=== PATIENT | male | born 1935 | race Caucasian/White ===

== ENCOUNTER 2020-08-23 18:29 | Observation (INO) | payer MEDICARE, OTHER ==
[~2020-08-23] VITALS: Ht 177.8 cm; Wt 77.3 kg
[~2020-08-23 18:29] MED LIST: ASPI-611 PO; ATOR40TA72 PO; CEFD300C3 PO; CLOP75TA34 PO; FINA5TAB11 PO; LACT1CAP26 PO; LEVO100T9 PO; LEVO50TA8 PO; OXYB5TAB16 PO; PANT40TA54 PO
--- NOTE | 2020-08-23 18:55 | NUR ---
UROLOGIST CARMITA HAS BEEN NOTIFIED THAT PT IS IN ER - GETTING UROLOGY CART AND WILL PLACE OUTSIDE ROOM FOR
[2020-08-23 19:15] LABS: BASOPHILS % (AUTO) 0.2 % (0-1); EOSINOPHILS # (AUTO) 0.1 X10'3 (0-0.9); EOSINOPHILS % (AUTO) 0.9 % (0-6); HEMATOCRIT 33.2 % (42.0-52.0); HEMOGLOBIN 11.5 g/dl (14.0-17.9); LYMPHOCYTES # (AUTO) 0.6 X10'3 (1.1-4.8); LYMPHOCYTES % (AUTO) 6.1 % (21-51); MEAN CORPUSCULAR HEMOGLOBIN 32.7 PG (27.0-31.0); MEAN CORPUSCULAR HGB CONC 34.7 g/dL (33.0-36.5); MEAN CORPUSCULAR VOLUME 94.3 FL (78-98); MEAN PLATELET VOLUME 8.1 FL (7.4-10.4); MONOCYTES % (AUTO) 9.3 % (2-12); NEUTROPHILS # (AUTO) 8.8 X10'3 (1.8-7.7); NEUTROPHILS % (AUTO) 83.5 % (42-75); PLATELET COUNT 269 X10'3 (140-440); RED BLOOD COUNT 3.52 X10'6 (4.70-6.10); RED CELL DISTRIBUTION WIDTH 14.8 % (11.5-14.5); WHITE BLOOD COUNT 10.6 X10'3 (4.5-11.0)
[2020-08-23 19:28] LABS: PARTIAL THROMBOPLASTIN TIME 30 SECONDS (22-32)
[2020-08-23 19:33] LABS: ALANINE AMINOTRANSFERASE 22 U/L (12-78); ALBUMIN 3.1 G/DL (3.4-5.0); ALBUMIN/GLOBULIN RATIO 1.1 (1.1-1.5); ALKALINE PHOSPHATASE 55 IU/L (46-116); ANION GAP 7 (8-16); ASPARTATE AMINO TRANSFERASE 22 U/L (10-37); BILIRUBIN,TOTAL 0.5 MG/DL (0.1-1.0); BLOOD UREA NITROGEN 10 MG/DL (7-18); BUN/CREATININE RATIO 10.2 (5.4-32.0); CALCIUM 8.1 MG/DL (8.5-10.1); CHLORIDE 102 MMOL/L (99-107); CREATININE 0.98 MG/DL (0.60-1.10); GLUCOSE 101 MG/DL (70-104); POTASSIUM 3.9 MMOL/L (3.5-5.1); SODIUM 136 MMOL/L (135-145); TOTAL CARBON DIOXIDE 27.4 MMOL/L (24-32); TOTAL PROTEIN 5.8 G/DL (6.4-8.2); eGFR 73 ML/MIN
[2020-08-23 19:49] LABS: CLARITY,URINE BLOODY (Clear); COLOR,URINE RED (Yellow); UA COLLECTION TYPE NON-SPECIFIED
[2020-08-23 19:54] LABS: BACTERIA,URINE FEW /HPF (Neg); MUCUS STRANDS NONE SEEN /LPF (Neg); RBC,URINE TNTC /HPF (0-2); SQUAMOUS EPITHELIAL CELL,UR NONE SEEN /LPF (FEW)
[2020-08-23] MEDS ORDERED: mag hydrox/Alum hydrox/simeth 30ml oral suspension PO PRN (20:20)
[2020-08-23] MEDS ORDERED: morphine 2 MG/ML inj. syringe IV PRN ×2 (20:20)
[2020-08-23] MEDS ORDERED: ondansetron/PF 4mg/2ml inj IV PRN (20:20)
[2020-08-23] MEDS ORDERED: magnesium hydroxide 30ml (MOM) UD suspension PO PRN (20:20)
[2020-08-23] MEDS ORDERED: acetaminophen 325mg tablet PO PRN ×2 (20:20)
[2020-08-23] MEDS: opium/belladonna alkaloids No. 15A 30mg rectal suppository RC PRN (20:55)
[2020-08-23] MEDS: normal saline 1000ml 1,000 ML IV SCH (21:16)
--- NOTE | 2020-08-23 21:30 | NUR ---
I have received report from Bigg RN and had the opportunity to ask questions and assume patient care.
[2020-08-23 21:45] VITALS: BP 93/64
[2020-08-23] MEDS ORDERED: oxybutynin 5mg tablet PO PRN (23:55)
[2020-08-24] VITALS: BP 102/63
[2020-08-24] MEDS: opium/belladonna alkaloids No. 15A 30mg rectal suppository RC PRN (04:33)
--- NOTE | 2020-08-24 06:05 | NUR ---
Patient in room [facility]. I have received report from Mary Lou IPMENTEL and had the opportunity to ask questions and assume patient care.
--- NOTE | 2020-08-24 06:22 | NUR ---
Problems reprioritized. Patient report given, questions answered & plan of care reviewed with Brooke PIMENTEL.
[2020-08-24] MEDS ORDERED: levoTHYROXINE 75mcg tablet PO SCH (07:00)
[2020-08-24 07:10] LABS: BASOPHILS % (AUTO) 0.3 % (0-1); EOSINOPHILS # (AUTO) 0.1 X10'3 (0-0.9); EOSINOPHILS % (AUTO) 0.5 % (0-6); HEMATOCRIT 32.1 % (42.0-52.0); HEMOGLOBIN 11.1 g/dl (14.0-17.9); LYMPHOCYTES # (AUTO) 0.3 X10'3 (1.1-4.8); LYMPHOCYTES % (AUTO) 3.1 % (21-51); MEAN CORPUSCULAR HGB CONC 34.7 g/dL (33.0-36.5); MEAN CORPUSCULAR VOLUME 95.1 FL (78-98); MONOCYTES # (AUTO) 0.5 X10'3 (0-0.9); MONOCYTES % (AUTO) 4.6 % (2-12); NEUTROPHILS # (AUTO) 9.7 X10'3 (1.8-7.7); NEUTROPHILS % (AUTO) 91.5 % (42-75); PLATELET COUNT 238 X10'3 (140-440); RED BLOOD COUNT 3.37 X10'6 (4.70-6.10); RED CELL DISTRIBUTION WIDTH 14.7 % (11.5-14.5); WHITE BLOOD COUNT 10.6 X10'3 (4.5-11.0)
[2020-08-24] MEDS ORDERED: pantoprazole 40mg Tablet.DR PO SCH (07:30)
[2020-08-24 07:35] LABS: ALBUMIN 2.8 G/DL (3.4-5.0); ANION GAP 8 (8-16); BLOOD UREA NITROGEN 11 MG/DL (7-18); BUN/CREATININE RATIO 11.8 (5.4-32.0); CHLORIDE 104 MMOL/L (99-107); CREATININE 0.93 MG/DL (0.60-1.10); GLUCOSE 95 MG/DL (70-104); POTASSIUM 4.2 MMOL/L (3.5-5.1); SODIUM 139 MMOL/L (135-145); TOTAL CARBON DIOXIDE 26.7 MMOL/L (24-32); eGFR 77 ML/MIN
[2020-08-24] MEDS: cefpodoxime proxetil 100mg tablet PO SCH ×2 (07:52→18:37)
[2020-08-24] MEDS ORDERED: atorvastatin 20mg tablet PO SCH (08:00)
[2020-08-24] MEDS ORDERED: non-formulary drug (Levothyroxine Sodium 50 MCG) PO SCH (08:00)
[2020-08-24] MEDS ORDERED: finasteride 5mg tablet PO SCH (08:00)
[2020-08-24 10:00] VITALS: BP 97/46
[2020-08-24] MEDS ORDERED: FLU VACC QS2020-21(6MOS UP)/PF 60 MCG/0.5 ML SYRINGE IMVAC ONE (10:00)
[2020-08-24 12:00] VITALS: BP 93/56
[2020-08-24] MEDS ORDERED: FLO0.4C PO (12:05)
[2020-08-24] MEDS ORDERED: CEFP100T7 PO (12:05)
[2020-08-24] MEDS: normal saline 1000ml 1,000 ML IV SCH ×3 (13:21→16:06)
--- NOTE | 2020-08-24 14:15 | NUR ---
PRV after 30mls out 122mls
--- NOTE | 2020-08-24 14:56 | NUR ---
250ml bolus given per Dr raphael.
--- NOTE | 2020-08-24 16:25 | NUR ---
Spoke to Dr Dumont and she advised for Pt to wait to be DC at least until he can void 200ml of urine. Pt urinated 70ml AVR 125ml. DC ready to go, encouraging pt to drink.
--- NOTE | 2020-08-24 17:08 | NUR ---
void of 70ml residual of 162mls - Dr Dumont will be called. Paging Magu with updates.
--- NOTE | 2020-08-24 18:24 | NUR ---
Problems reprioritized. Patient report given, questions answered & plan of care reviewed with Samantha PIMENTEL.
--- NOTE | 2020-08-24 18:54 | NUR ---
Patient in room [facility]. I have received report from Brooke PIMENTEL and had the opportunity to ask questions and assume patient care.
--- NOTE | 2020-08-24 19:36 | NUR ---
Pt prepared for discharge. IV removed and pt dressed in his own clothing. VSS, all personal belongings in the possession of the pt. Pt taken to the front door via wheelchair and ambulated to the cab with his cane. Pt had no signs of distress at the time of discharge.
[2020-08-24] MEDS ORDERED: lactobacillus rhamnosus 10,000 MMU CELLS/CAPSULE PO SCH (20:00)
[2020-08-24] MEDS ORDERED: tamsulosin 0.4mg capsule PO SCH (21:00)
== END 2020-08-24 20:00 | disposition short-term general hospital (02) ==
LOC: ER 18:30 → ED HOLD 20:19 → SUR 3N 21:28
PROVIDERS: ADMIT Internal Medicine; ATTEND Internal Medicine
DX: R31.0 Gross hematuria (principal); N40.0 Benign prostatic hyperplasia without lower urinary tract symptoms; E03.9 Hypothyroidism, unspecified; E78.5 Hyperlipidemia, unspecified; K21.9 Gastro-esophageal reflux disease without esophagitis; I25.10 Atherosclerotic heart disease of native coronary artery without angina pectoris; I48.91 Unspecified atrial fibrillation; I10 Essential (primary) hypertension; I35.0 Nonrheumatic aortic (valve) stenosis; Z90.79 Acquired absence of other genital organ(s); Z95.5 Presence of coronary angioplasty implant and graft; T83.9XXA Unspecified complication of genitourinary prosthetic device, implant and graft, initial encounter; Z86.73 Personal history of transient ischemic attack (TIA), and cerebral infarction without residual deficits; Z79.02 Long term (current) use of antithrombotics/antiplatelets; Z79.899 Other long term (current) drug therapy
CPT/HCPCS: 36415; 80048; 80053; 81001; 83880; 85025; 85610; 85730; 86885; 86900; 86901; 87081; 87088; 96360; 96361; 99284; G0378; J7030